=== PATIENT | male | born 1965 | race Caucasian/White ===

== ENCOUNTER 2017-03-24 08:32 | Emergency (ER) | payer OTHER ==
[~2017-03-24] VITALS: Ht 172.7 cm; Wt 81.6 kg
[~2017-03-24 08:32] MED LIST: ACETAMINOPHEN-H1 TA2 PO; AUGMENTIN 875 M1 TAB PO; AUGMENTIN XR1000 M1 PO
[2017-03-24 09:07] LABS: BASO # 0.1 10*3/uL (0.0-0.1); BASO % 0.8 % (0.0-1.0); EOS # 0.2 10*3/uL (0.0-0.4); EOS % 2.2 % (1.0-4.0); HEMATOCRIT 44.1 % (42.0-52.0); HEMOGLOBIN 15.7 g/dl (14.0-18.0); LYMPH # 1.7 10*3/uL (1.3-4.4); LYMPH % 18.6 % (27.0-41.0); MEAN CELL VOLUME 89.5 fl (80.0-94.0); MEAN CORPUSCULAR HGB 31.8 pg (27.0-31.0); MEAN CORPUSCULAR HGB CONC 35.6 g/dl (33.0-37.0); MEAN PLATELET VOLUME 10.5 fl (9.6-12.3); MONO # 0.4 10*3/uL (0.1-1.0); MONO % 4.2 % (3.0-9.0); NEUT # 6.7 10*3/uL (2.3-7.9); NEUT % 73.8 % (47.0-73.0); PLATELET COUNT AUTOMATED 243 10*3/uL (130-400); RED BLOOD COUNT 4.93 10*6/uL (4.50-5.90); RED CELL DISTRI WIDTH 12.4 % (0-14.5); WHITE BLOOD COUNT 9.1 10*3/uL (4.8-10.8)
[2017-03-24 09:21] LABS: BUN 15 mg/dl (7-24); CHLORIDE 105 mmol/L (98-107); CREATININE 1.34 mg/dL (0.70-1.30); POTASSIUM 4.6 mmol/L (3.5-5.1); SODIUM 138 mmol/L (136-145)
[2017-03-24] MEDS ORDERED: PERCOCET 10-321 EACH PO (12:03)
[2017-03-24 13:42] LABS: BILIRUBIN NEGATIVE (NEGATIVE); BLOOD 3+ (NEGATIVE); CLARITY CLOUDY (CLEAR); COLOR RED (YELLOW); GLUCOSE NEGATIVE (NEGATIVE); KETONE NEGATIVE (NEGATIVE); LEUKO ESTERASE NEGATIVE (NEGATIVE); NITRITE NEGATIVE (NEGATIVE); SPECIFIC GRAVITY 1.015 (1.005-1.030); UROBILINOGEN 0.2 E.U./dl (0.2-1.0)
[2017-03-24 13:51] LABS: RBC 51-100 rbc/hpf (0-2)
== END 2017-03-24 14:53 | disposition home or self-care (01) ==
LOC: ED 08:32
PROVIDERS: Emergency Medicine
DX: N20.1 Calculus of ureter (principal); Z79.899 Other long term (current) drug therapy

== ENCOUNTER → 2022-06-03 | Outpatient (CLI) | payer BC ==
[~2022-06-03] MED LIST changes: +PERCOCET 10-321 EACH PO
[2022-06-03 10:48] LABS: ALKALINE PHOSPHATASE 64 U/L (46-116); BUN 10 mg/dl (9-23); CHLORIDE 107 mmol/L (98-107); CHOLESTEROL 170 mg/dL (<200); LDL CHOLESTEROL 114 mg/dL (9-159); POTASSIUM 4.3 mmol/L (3.4-5.1); SGPT/ALT 22 U/L (10-49); TOTAL PROTEIN 7.1 gm/dL (6.0-8.0); TRIGLYCERIDES 122 mg/dl (<150)
== END | disposition home or self-care (01) ==
LOC: LAB 09:04
PROVIDERS: ATTEND Family Medicine
DX: Z12.5 Encounter for screening for malignant neoplasm of prostate (principal); E78.2 Mixed hyperlipidemia; R73.01 Impaired fasting glucose

== ENCOUNTER 2024-09-23 20:35 | Emergency (ER) | payer OTHER ==
[~2024-09-23] VITALS: Ht 172.7 cm; Wt 81.6 kg
[2024-09-23] MEDS ORDERED: Rabies Vaccine 1 ML VIAL IM ONE (21:10)
[2024-09-23] MEDS ORDERED: Amoxicillin/Clavulanate Pota 875 MG TAB PO ONE (21:10)
[2024-09-23] MEDS ORDERED: Tdap Vaccine 0.5 ML SYR (Adult Vaccine) IM ONE (21:10)
[2024-09-23] MEDS ORDERED: AMOX-CLAV 875-1 EACH PO (21:24)
== END 2024-09-23 22:05 | disposition home or self-care (01) ==
LOC: ED 20:35
DX: S61.031D Puncture wound without foreign body of right thumb without damage to nail, subsequent encounter (principal); S61.250A Open bite of right index finger without damage to nail, initial encounter; S61.252A Open bite of right middle finger without damage to nail, initial encounter; W54.0XXD Bitten by dog, subsequent encounter; Y93.89 Activity, other specified; Y92.89 Other specified places as the place of occurrence of the external cause; Y99.8 Other external cause status